=== PATIENT | female | born 1975 | race American Indian/Alaskan Native ===

== ENCOUNTER 2021-03-10 11:47 | Emergency (ER) | payer SELFPAY ==
[2021-03-10] MEDS ORDERED: dexAMETHasone 20 MG/5 ML VIAL IM ONE (13:12)
--- NOTE | 2021-03-10 13:12 | Emergency Department Report ---
ED Extremity Problem HPI - General Chief complaint: Extremity Injury, Upper Stated complaint: NUMBNESS IN RT ARM AND FINGER TIPS Time Seen by Provider: 03/10/21 12:11 Source: patient Mode of arrival: Ambulatory Limitations: No Limitations - History of Present Illness Initial comments: 46-year-old female presents to the ER today with complaints of numbness and tingling related to the third and fourth finger of her right hand with associated pain mainly around her right elbow which radiates up into her right shoulder and down into her hands. Patient states that her symptoms started about 4 days ago. She states that the symptoms have been constant. She reports pain with movement of her right hand, elbow and shoulder. She also reports some pain in her right trapezius area. She states that she has had few times when she would pick things up with her right hand and it would fall out of her hands due to the numbness in the fingers. 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 She is right-hand dominant. She denies any apparent swelling, erythema, bruising or significant skin discoloration. She denies any neck pain, chest pain, vision changes, slurred speech,, fever chills or any additional symptoms. She has a past medical history of hypertension but no other significant past medical history. MD Complaint: extremity pain, other (Tingling and numbness) Severity scale (0 -10): 0 - Related Data Previous Rx's Medication Instructions Recorded Last Taken Type Ketorolac [Toradol] 10 mg PO Q6H PRN #20 tablet 03/10/21 Unknown Rx Tramadol HCl/Acetaminophen 1 each PO Q4HR #12 tablet 03/10/21 Unknown Rx [Ultracet Tablet] Allergies Allergy/AdvReac Type Severity Reaction Status Date / Time No Known Allergies Allergy Unverified 12/01/19 11:24 ED Review of Systems ROS: Stated complaint: NUMBNESS IN RT ARM AND FINGER TIPS Other details as noted in HPI Comment: All other systems reviewed and negative Constitutional: denies: chills, fever Eyes: denies: eye pain, eye discharge, vision change ENT: denies: ear pain, throat pain, dental pain, hearing loss, epistaxis, congestion Respiratory: denies: cough, orthopnea, shortness of breath, SOB with exertion, SOB at rest, wheezing Cardiovascular: denies: chest pain, palpitations, dyspnea on exertion, edema, syncope, paroxysmal nocturnal dyspnea Endocrine: no symptoms reported Gastrointestinal: denies: abdominal pain, nausea, vomiting, diarrhea, constipation, hematemesis, hematochezia Genitourinary: denies: urgency, dysuria, frequency, hematuria, discharge, abnormal menses, dyspareunia Musculoskeletal: joint swelling, arthralgia, myalgia Skin: denies: rash, lesions, change in color, change in hair/nails, pruritus Neurological: numbness, paresthesias. denies: headache, weakness, confusion, abnormal gait, vertigo Psychiatric: denies: anxiety, depression, auditory hallucinations, visual hallucinations, homicidal thoughts, suicidal thoughts Hematological/Lymphatic: denies: easy bleeding, easy bruising, swollen glands ED Past Medical Hx - Past Medical History Hx Hypertension: Yes - Social History Smoking Status: Never Smoker Substance Use Type: None - Medications Home Medications: Home Medications Medication Instructions Recorded Confirmed Last Taken Type Ketorolac [Toradol] 10 mg PO Q6H PRN #20 tablet 03/10/21 Unknown Rx Tramadol HCl/Acetaminophen 1 each PO Q4HR #12 tablet 03/10/21 Unknown Rx [Ultracet Tablet] ED Physical Exam - General Limitations: No Limitations General appearance: alert, in no apparent distress - Head Head exam: Present: atraumatic, normocephalic, normal inspection - Eye Eye exam: Present: normal appearance, PERRL, EOMI Pupils: Present: normal accommodation - ENT ENT exam: Present: normal exam, mucous membranes moist, TM's normal bilaterally - Neck Neck exam: Present: normal inspection, tenderness (Mild ttp right trapezius with mild spasm. No midline ttp. Full ROM without any limitation or pain ), full ROM - Respiratory Respiratory exam: Present: normal lung sounds bilaterally. Absent: respiratory distress, wheezes, rales, rhonchi - Cardiovascular Cardiovascular Exam: Present: regular rate, normal rhythm, normal heart sounds - Expanded Upper Extremity Exam Right General: Present: normal inspection Shoulder Exam: Present: normal inspection, full ROM, tenderness (right anterior ttp ). Absent: swelling, abrasion, laceration, ecchymosis, deformity, crepidus, dislocation, erythema, tenderness over AC joint Upper Arm exam: Present: normal inspection, full ROM. Absent: tenderness, swelling, abrasion, laceration, ecchymosis, deformity, crepidus, dislocation, erythema Elbow exam: Present: normal inspection, full ROM, tenderness (Medial and lateral aspect of the left elbow). Absent: swelling, abrasion, laceration, ecchymosis, deformity, crepidus, dislocation, erythema, effusion, pain w/ pron ation/supination, tenderness over radial head Forearm Wrist exam: Present: normal inspection. Absent: full ROM, tenderness, swelling, abrasion, laceration, ecchymosis, deformity, crepidus, dislocation, erythema, tenderness over anatomical snuff box, pain with axial thumb loading Hand Wrist exam: Present: normal inspection, full ROM. Absent: tenderness, swelling, abrasion, laceration, ecchymosis, deformity, crepidus, dislocation, erythema, amputation, nail avulsion, subungual hematoma Neuro motor exam: Present: wrist extension intact, thumb opposition intact, thumb IP flexion intact, thumb adduction intact, fingers 2-5 abduction intact Neurosensory exam: Present: 2-point discrimination Vascular: Present: normal capillary refill, radial pulse (normal ). Absent: vascular compromise, Pallo, pulse deficit radial art - Neurological Exam Neurological exam: Present: alert, oriented X3, CN II-XII intact, normal gait, reflexes normal (RUE and equal to left) - Psychiatric Psychiatric exam: Present: normal affect, normal mood - Skin Skin exam: Present: intact ED Course Vital Signs 03/10/21 11:51 Temperature 98.1 F Pulse Rate 84 Respiratory 18 Rate Blood Pressure 124/84 [Right] O2 Sat by Pulse 98 Oximetry ED Medical Decision Making - Medical Decision Making 46-year-old female presents to the ER today with complaints of numbness and tingling related to the third and fourth finger of her right hand with associated pain mainly around her right elbow which radiates up into her right shoulder and down into her hands. Patient states that her symptoms started about 4 days ago. She states that the symptoms have been constant. She reports pain with movement of her right hand, elbow and shoulder. She also reports some pain in her right trapezius area. She states that she has had few times when she would pick things up with her right hand and it would fall out of her hands due to the numbness in the fingers. 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 She is right-hand dominant. She denies any apparent swelling, erythema, bruising or significant skin discoloration. She denies any neck pain, chest pain, vision changes, slurred speech,, fever chills or any additional symptoms. She has a past medical history of hypertension but no other significant past medical history. 1329: Patient is not toxic or ill appearing and not in any acute distress. She is awake alert and oriented x 3. She has normal gait. She has no focal neurological signs especially to the upper extremities including normal reflexes. Strength 5 out of 5 bilateral upper extremity. Her sensation to UE ext are intact including to the 4th and 5th fingers. He does have tenderness palpation to the right trapezius, but no midline cervical tenderness, right shoulder pain is mainly to the right elbow as well as pain with ROM to those areas. She has no swelling to the right upper extremity. No skin discoloration or abnormal temperature. At this time I do not suspect DVT, CVA/TIA, acute arterial occlusion, deep space infection, acute spinal cord compression, subclavian vein thrombosis or any other emergent conditions warranting testing, admission or specialist consult at this time. I suspect either ulnar neuropathy, or possible atypical presentation of carpal tunnel, tendonitis or even cervical radiculopathy. Discussed suspected diagnosis with patient, she will need to follow-up with orthopedic doctor for further evaluation including MRI for nerve conduction studies. At this discussed worsening signs and symptoms of patient and informed her if any of the signs and symptoms develop that she needs to return immediately to the ER. Patient expressed understanding of all instructions and agreed with plan. Patient was stable at time of discharge. Critical care attestation.: If time is entered above; I have spent that time in minutes in the direct care of this critically ill patient, excluding procedure time. ED Disposition Clinical Impression: Paresthesia of right upper extremity, Right elbow pain Disposition: 01 HOME / SELF CARE / HOMELESS Is pt being admited?: No Does the pt Need Aspirin: No Condition: Stable Instructions: Peripheral Neuropathy, Musculoskeletal Pain, Paresthesia, [id number] Additional Instructions: I recommend follow up with pc support specialist for further evaluation including nerve conduction studies and MRI if needed. Take the toradol and the ultram as prescribed. I recommend resting your arm for the next few days. Return to ED if your symptoms worsens, including development of any significant skin color change, severe tightness or swelling to the right upper arm severe weakness, speech changes, facial weakness, fever or chills. Prescriptions: Ketorolac [Toradol] 10 mg PO Q6H PRN #20 tablet PRN Reason: Pain Tramadol HCl/Acetaminophen [Ultracet Tablet] 1 each PO Q4HR #12 tablet Referrals: TITO SUMMERS MD [Staff Physician] - 7-10 days Forms: Work/School Release Form(ED) Time of Disposition: 13:25
[2021-03-10 13:49] VITALS: BP 140/96
== END 2021-03-10 13:43 | disposition home or self-care (01) ==
LOC: ED 11:47
DX: M25.521 Pain in right elbow (principal); R20.2 Paresthesia of skin; I10 Essential (primary) hypertension; Z79.899 Other long term (current) drug therapy
CPT/HCPCS: 99282; J1100